=== PATIENT | male | born 1955 | race Caucasian/White ===

== ENCOUNTER 2018-09-27 09:57 | Observation (INO) | payer OTHER ==
[2018-09-27 10:09] VITALS: BMI 27.4
--- NOTE | 2018-09-27 10:45 | C.PDOC ---
History Of Present Illness 63 year old male present to ED with complaint of intermittent left sided chest pain that radiates down the left arm for the past 3-4 days. Patient has a PMHx of CAD s/p 2 stents. Patient admits to drinking a 6-pack of beer today. He is currently requesting detox. He denies SOB, palpitations, cough, and fever. Time Seen by Provider: 09/27/18 10:02 Chief Complaint (Nursing): Chest Pain History Per: Patient History/Exam Limitations: no limitations Onset/Duration Of Symptoms: Days (3-4) Current Symptoms Are (Timing): Still Present Quality: "Pain" Associated Symptoms: denies: Nausea, Dyspnea Past Medical History Reviewed: Historical Data, Nursing Documentation, Vital Signs Vital Signs: Last Vital Signs Temp 98.3 F 09/27/18 10:05 Pulse 63 09/27/18 10:05 Resp 18 09/27/18 10:05 BP 92/56 L 09/27/18 10:05 Pulse Ox 95 09/27/18 10:05 Primary Care Provider: FAMILY PROVIDER,NO - Medical History PMH: Asthma, CHF (Last ECHO 05/07/12: EF 15-20%), HTN Denies: Chronic Kidney Disease Surgical History: Coronary Stent (as per patient) - [employer] Procedures CORONAR ARTERIOGR-2 CATH (02/25/14) FLUOROSCOPY OF LEFT HEART USING LOW OSMOLAR CONTRAST (03/25/15) FLUOROSCOPY OF MULT COR ART USING L OSM CONTRAST (03/25/15) LEFT HEART CARDIAC CATH (02/25/14) LT HEART ANGIOCARDIOGRAM (02/23/14) MEASURE OF CARDIAC SAMPL & PRESSURE, L HEART, PERC APPROACH (03/25/15) Family History: States: Unknown Family Hx - Social History Hx Alcohol Use: Yes Hx Substance Use: No Review Of Systems Constitutional: Negative for: Fever, Chills Cardiovascular: Positive for: Chest Pain (left-sided). Negative for: Palpitations Respiratory: Negative for: Cough, Shortness of Breath Gastrointestinal: Negative for: Nausea, Vomiting Musculoskeletal: Positive for: Arm Pain (left arm pain) Neurological: Negative for: Weakness, Numbness Physical Exam - Physical Exam Appears: Non-toxic, No Acute Distress, Other (appears intoxicated) Skin: Normal Color, Warm, Dry Head: Atraumatic, Normacephalic Eye(s): bilateral: Normal Inspection, PERRL, EOMI Neck: Normal ROM, Supple Chest: Symmetrical, No Deformity Cardiovascular: Rhythm Regular, No Murmur Respiratory: No Accessory Muscle Use, No Rales, No Rhonchi, No Wheezing Gastrointestinal/Abdominal: Bowel Sounds (normoactive), Soft, No Tenderness Extremity: Capillary Refill (<2 seconds) Extremity: Bilateral: Atraumatic, Normal Color And Temperature, Normal ROM Pulses: Left Radial: Normal, Right Radial: Normal Neurological/Psych: Oriented x3, Other (able to follow commands) ED Course And Treatment - Laboratory Results Result Diagrams: 09/27/18 10:54 09/27/18 10:54 ECG: Interpreted By Me, Viewed By Me ECG Rhythm: Sinus Rhythm Interpretation Of ECG: Left axis deviation. T- wave inversion at v2,v3, avF(seen in 03/28/15), and v4-v6 (new). Rate From EC O2 Sat by Pulse Oximetry: 95 (in RA) Pulse Ox Interpretation: Normal - Other Rad CXR X-Ray: Interpreted by Me, Viewed By Me Interpretation: IMPRESSION: No acute findings identified. Progress Note: Labs ordered with cardiac enzymes and drug screen. CXR ordered for patient. Patient given Aspirin PO. Disposition - Disposition Disposition: HOSPITALIZED - Scribe Statement The provider has reviewed the documentation as recorded by the Scribe (Susan Rios) All medical record entries made by the Scribe were at my direction and personally dictated by me. I have reviewed the chart and agree that the record accurately reflects my personal performance of the history, physical exam, medical decision making, and the department course for this patient. I have also personally directed, reviewed, and agree with the discharge instructions and disposition.
[2018-09-27 10:59] LABS: BASO % 0.2 % (0.0-2.0); EOS # 0.1 K/uL (0.0-0.7); EOS % 1.1 % (0.0-4.0); HEMOGLOBIN 11.3 g/dL (12.0-18.0); LYMPH # 1.1 K/uL (1.0-4.3); LYMPH % 13.1 % (20.0-40.0); MEAN CELL VOLUME 94.3 fL (80.0-94.0); MEAN CORPUSCULAR HEMOGLOBIN 32.2 pg (27.0-31.0); MEAN CORPUSCULAR HGB CONC 34.2 g/dL (33.0-37.0); MEAN PLATELET VOLUME 7.6 fL (7.2-11.7); MONO # 0.7 K/uL (0.0-0.8); MONO % 8.7 % (0.0-10.0); NEUT # 6.2 K/uL (1.8-7.0); NEUT % 76.9 % (50.0-75.0); RBC 3.51 Mil/uL (4.40-5.90); RED CELL DISTRIBUTION WIDTH 13.5 % (11.5-14.5); WHITE BLOOD COUNT 8.1 K/uL (4.8-10.8)
[2018-09-27 11:06] LABS: PARTIAL THROMBOPLASTIN TIME 29.8 SECONDS (21-34); PROTHROMBIN TIME 10.5 SECONDS (9.7-12.2)
[2018-09-27 11:15] LABS: ALB/GLOB RATIO 1.3 (1.0-2.1); ALBUMIN 4.6 g/dL (3.5-5.0); ALT/SGPT 68 U/L (21-72); AST/SGOT 186 U/L (17-59); BLOOD UREA NITROGEN 21 mg/dL (9-20); CALCIUM 9.2 mg/dl (8.6-10.4); GFR NON-AFRICAN AMERICAN > 60
[2018-09-27 11:24] LABS: B-TYPE NATRIURETIC PEPTIDE 69.9 pg/mL (0-900); CK-MB 33.8 ng/mL (0.0-3.38)
[2018-09-27] MEDS ORDERED: Sodium Chloride 0.9% 500 ML IV ONE (11:26)
[2018-09-27 11:49] LABS: BARBITURATES, UR NEGATIVE (NEGATIVE); OPIATES, UR NEGATIVE (NEGATIVE); PHENCYCLIDINE, UR NEGATIVE (NEGATIVE)
[2018-09-27 12:06] LABS: BENZODIAZEPINES, UR POSITIVE (NEGATIVE)
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
--- NOTE | 2018-09-27 13:43 | RAD ---
HISTORY: SOB COMPARISON: Chest x-ray performed 04/28/12 TECHNIQUE: Chest, one view. FINDINGS: LUNGS: No focal consolidation. Please note that chest x-ray has limited sensitivity for the detection of pulmonary masses. PLEURA: No significant pleural effusion identified. No definite pneumothorax . CARDIOVASCULAR: The cardiomediastinal silhouette appears within normal limits of size. Atherosclerotic calcifications of the aorta present. OSSEOUS STRUCTURES: Degenerative changes. VISUALIZED UPPER ABDOMEN: Unremarkable. OTHER FINDINGS: None. IMPRESSION: No acute findings identified.
[2018-09-27 14:24] VITALS: RESP 20
[2018-09-27] MEDS ORDERED: Albuterol-Ipratrop 3 mg / 0.5 (3 ml) UD INH PRN (15:47)
[2018-09-27] MEDS ORDERED: Multivitamin (MVI) 10 ML, Thiamine 100 MG, Folic Acid 1 MG in Sodium Chloride 0.9% 1,00... IV ONE (16:30)
[2018-09-27] MEDS: Sodium Chloride 0.9% 1,000 ML IV SCH (17:00)
[2018-09-27 17:42] LABS: CK-MB 28.5 ng/mL (0.0-3.38)
[2018-09-27] MEDS: Fluticasone Nasal 50 mcg/Spray NAS SCH (18:20)
[2018-09-27 20:05] LABS: URINE BACTERIA RARE (<OCC); URINE BILIRUBIN NEGATIVE (NEGATIVE); URINE BLOOD NEGATIVE (NEGATIVE); URINE CLARITY Clear (Clear); URINE COLOR Yellow (YELLOW); URINE GLUCOSE (UA) NORMAL (Normal); URINE LEUKOCYTE ESTERASE NEG Leu/uL (Negative); URINE PROTEIN NEGATIVE (NEGATIVE); URINE UROBILINOGEN NORMAL mg/dL (0.2-1.0)
[2018-09-28] MEDS: Sodium Chloride 0.9% 1,000 ML IV SCH ×3 (03:25→22:15)
[2018-09-28] MEDS: Fluticasone Nasal 50 mcg/Spray NAS SCH ×2 (05:20→17:44)
[2018-09-28 07:31] LABS: BASO % 0.3 % (0.0-2.0); EOS # 0.1 K/uL (0.0-0.7); EOS % 2.2 % (0.0-4.0); HEMOGLOBIN 10.9 g/dL (12.0-18.0); LYMPH # 0.9 K/uL (1.0-4.3); LYMPH % 15.5 % (20.0-40.0); MEAN CELL VOLUME 94.8 fL (80.0-94.0); MEAN CORPUSCULAR HEMOGLOBIN 32.6 pg (27.0-31.0); MEAN CORPUSCULAR HGB CONC 34.4 g/dL (33.0-37.0); MEAN PLATELET VOLUME 8.2 fL (7.2-11.7); MONO # 0.5 K/uL (0.0-0.8); NEUT # 4.4 K/uL (1.8-7.0); NRBC % 0.1 % (0.0-2.0); RBC 3.34 Mil/uL (4.40-5.90); RED CELL DISTRIBUTION WIDTH 13.5 % (11.5-14.5)
[2018-09-28 07:44] LABS: ALB/GLOB RATIO 1.5 (1.0-2.1); ALBUMIN 3.7 g/dL (3.5-5.0); ALT/SGPT 52 U/L (21-72); AST/SGOT 103 U/L (17-59); BLOOD UREA NITROGEN 22 mg/dL (9-20); CALCIUM 8.5 mg/dl (8.6-10.4); GFR NON-AFRICAN AMERICAN > 60
[2018-09-28 07:51] LABS: LDL CHOLESTEROL 34 mg/dL (0-129)
--- NOTE | 2018-09-28 07:51 | CP.PCM.PN ---
<Casa Schneider - Last Filed: 09/28/18 16:27> Subjective - Date & Time of Evaluation Date of Evaluation: 09/28/18 Time of Evaluation: 09:00 - Subjective Subjective: Medicine Progress Note for Dr. Pritchard, Hospitalist Service Pt seen and examined at bedside this am. Reports dry cough without any sputum that has not improved. States he only gets chest pain when he is coughing. Admits to being unable to sleep overnight 2/2 to being diaphoretic. No acute events reported overnight by staff. Observed ambulating around room without concerns. Tolerating PO diet. Voiding well without concerns. Otherwise denies fever, sob, n/v/d/c, abd pain, urinary complaints, or other symptoms. Objective - Vital Signs/Intake and Output Vital Signs (last 24 hours): Temp Pulse Resp BP Pulse Ox 98.8 F 64 20 155/80 H 97 09/28/18 07:20 09/28/18 07:20 09/28/18 07:20 09/28/18 07:20 09/28/18 07:20 - Medications Medications: Current Medications Albuterol/Ipratropium (Duoneb 3 Mg/0.5 Mg (3 Ml) Ud) 3 ml INH RQ6 PRN PRN Reason: Shortness of Breath Aspirin (Aspirin Chewable) 81 mg PO DAILY [facility] Chlordiazepoxide (Librium) 25 mg PO Q4H PRN PRN Reason: Alcohol Withdrawal Last Admin: 09/27/18 17:49 Dose: 25 mg Clopidogrel Bisulfate (Plavix) 75 mg PO DAILY [facility] Fluticasone Propionate (Flonase) 0 spr NANCY Q12H [facility] Last Admin: 09/28/18 05:20 Dose: Not Given Folic Acid (Folic Acid) 1 mg PO DAILY [facility] Furosemide (Lasix) 40 mg PO DAILY [facility] Heparin Sodium (Porcine) (Heparin) 5,000 units SC Q12 [facility] Last Admin: 09/27/18 21:32 Dose: 5,000 units Sodium Chloride (Sodium Chloride 0.9%) 1,000 mls @ 100 mls/hr IV .Q10H [facility] Last Admin: 09/28/18 03:25 Dose: 100 mls/hr Isosorbide Mononitrate (Imdur Er) 60 mg PO DAILY [facility] Lisinopril (Zestril) 10 mg PO DAILY [facility] Loratadine (Claritin) 10 mg PO DAILY [facility] Last Admin: 09/27/18 17:48 Dose: 10 mg Metoprolol Tartrate (Lopressor) 25 mg PO Q12H [facility] Last Admin: 09/27/18 21:33 Dose: 25 mg Multivitamins (Hexavitamin) 1 tab PO DAILY [facility] Nicotine (Nicoderm Cq) 1 patch TD DAILY [facility] Rosuvastatin Calcium (Crestor) 20 mg PO HS [facility] Last Admin: 09/27/18 21:32 Dose: 20 mg Spironolactone (Aldactone) 25 mg PO DAILY [facility] Thiamine HCl (Vitamin B1 Tab) 100 mg PO DAILY [facility] - Labs Labs: 09/28/18 07:23 09/28/18 07:23 PT 10.5 SECONDS (9.7-12.2) 09/27/18 10:54 INR 1.0 09/27/18 10:54 APTT 29.8 SECONDS (21-34) 09/27/18 10:54 - Constitutional Appears: Non-toxic, No Acute Distress - Head Exam Head Exam: ATRAUMATIC, NORMOCEPHALIC - Eye Exam Eye Exam: EOMI, Normal appearance, PERRL - ENT Exam ENT Exam: Mucous Membranes Moist, Normal Oropharynx - Respiratory Exam Respiratory Exam: Clear to Ausculation Bilateral, NORMAL BREATHING PATTERN. absent: Rales, Rhonchi, Wheezes - Cardiovascular Exam Cardiovascular Exam: REGULAR RHYTHM, +S1, +S2. absent: Gallop, Rubs, Murmur - GI/Abdominal Exam GI & Abdominal Exam: Soft, Normal Bowel Sounds. absent: Distended, Guarding, Tenderness, Organomegaly - Extremities Exam Extremities Exam: Full ROM, Normal Capillary Refill, Normal Inspection. absent: Pedal Edema, Tenderness - Back Exam Back Exam: Full ROM, NORMAL INSPECTION. absent: paraspinal tenderness - Neurological Exam Neurological Exam: Alert, Awake, CN II-XII Intact, Normal Gait, Oriented x3 - Skin Skin Exam: Dry, Intact, Normal Color, Warm Assessment and Plan - Assessment and Plan (Free Text) Assessment: 63 year old male with PMHx of CAD with stents x2, HTN, EtOH abuse, and asthma presented to the ED for multiple complaints: dizziness, diaphoresis, rhinorrhea, sneezing, cough with white sputum and chest pain. Admitted for chest pain r/o ACS. Plan: Atypical chest pain -EKG on admission: NSR@ 62 bpm, L axis deviation, inverted T waves in inferior and lateral leads, no significant change from previous -ROMIs neg x3 -Cardiology, Dr. Askew consulted, recs appreciated -Echo demonstrates normal EF, no abnormalities Complaint of diaphoresis, body aches, rhinorrhea, cough -Likely secondary to seasonal allergies vs. viral illness -CXR demonstrates no acute disease -Rapid flu neg -Loratadine 10mg PO daily -Flonase daily -Robitussin prn Acute alcohol intoxication -Librium 25mg PO Q4H PRN -MVT -Folic acid 1mg PO daily -Thiamine 100mg po daily -CIWA protocol -Seizure precautions -Utox pos for benzos Anemia -Likely secondary to alcohol abuse -H/H 10.9/31.6 -Cont to monitor Transaminitis -Likely secondary to alcohol abuse -Trending down this am, cont to monitor -f/u HIV -Hepatitis panel reactive for Hep C -Instructed pt to f/u with PCP to initiate treatment for Hep C Hx CAD with stents, hypertension -TSH wnl, free T4 low, lipid panel wnl -Aspirin 81mg PO daily -Plavix 75mg daily - f/u with Dr. Askew to see if patient need to continue Plavix as stent was placed in 2014 -Lisinopril 10mg PO daily -Metoprolol tartrate 25mg PO Q12h -Isosorbide dinitrate 60mg PO daily -Spironolactone 25mg daily -Furosemide 40mg PO daily -Crestor 20mg HS History of CHF (as per chart records) -Echo 2013: EF 27.9% -Echo 2014: EF 50% with normal LVSF -Echo results 09/28/18 as noted above Hx of asthma -Duonebs Q6H PRN Hx of Nicotine use disorder -Nicotine patch 7mg TD daily PPX: Heparin Q12H, SCD No GI ppx indicated Pt seen, examined with, and plan discussed with Dr. Pritchard, attending physician. Casa Schneider DO PGY-1, Crusher Operator Pager #[phone] <Delisa Pritchard V - Last Filed: 09/29/18 07:28> Objective - Vital Signs/Intake and Output Vital Signs (last 24 hours): Temp Pulse Resp BP Pulse Ox 98.7 F 64 20 131/74 96 09/28/18 23:32 09/28/18 23:40 09/28/18 23:32 09/28/18 23:32 09/28/18 23:32 Intake and Output: 09/29/18 09/29/18 06:59 18:59 Intake Total 1150 Balance 1150 - Medications Medications: Current Medications Albuterol/Ipratropium (Duoneb 3 Mg/0.5 Mg (3 Ml) Ud) 3 ml INH RQ6 PRN PRN Reason: Shortness of Breath Aspirin (Aspirin Chewable) 81 mg PO DAILY [facility] Last Admin: 09/28/18 09:07 Dose: 81 mg Chlordiazepoxide (Librium) 25 mg PO Q4H PRN PRN Reason: Alcohol Withdrawal Last Admin: 09/27/18 17:49 Dose: 25 mg Clopidogrel Bisulfate (Plavix) 75 mg PO DAILY [facility] Last Admin: 09/28/18 09:07 Dose: 75 mg Fluticasone Propionate (Flonase) 0 spr NANCY Q12H [facility] Last Admin: 09/29/18 05:00 Dose: Not Given Folic Acid (Folic Acid) 1 mg PO DAILY [facility] Last Admin: 09/28/18 09:07 Dose: 1 mg Furosemide (Lasix) 40 mg PO DAILY [facility] Last Admin: 09/28/18 09:10 Dose: 40 mg Guaifenesin (Robitussin) 100 mg PO Q4H PRN PRN Reason: Cough Last Admin: 09/29/18 03:43 Dose: 100 mg Heparin Sodium (Porcine) (Heparin) 5,000 units SC Q12 [facility] Last Admin: 09/28/18 22:10 Dose: 5,000 units Sodium Chloride (Sodium Chloride 0.9%) 1,000 mls @ 100 mls/hr IV .Q10H [facility] Last Admin: 09/29/18 03:50 Dose: 100 mls/hr Isosorbide Mononitrate (Imdur Er) 60 mg PO DAILY [facility] Last Admin: 09/28/18 09:07 Dose: 60 mg Lisinopril (Zestril) 10 mg PO DAILY [facility] Last Admin: 09/28/18 13:25 Dose: 10 mg Loratadine (Claritin) 10 mg PO DAILY [facility] Last Admin: 09/28/18 09:06 Dose: 10 mg Metoprolol Tartrate (Lopressor) 25 mg PO Q12H [facility] Last Admin: 09/28/18 19:56 Dose: 25 mg Multivitamins (Hexavitamin) 1 tab PO DAILY [facility] Last Admin: 09/28/18 09:07 Dose: 1 tab Nicotine (Nicoderm Cq) 1 patch TD DAILY [facility] Last Admin: 09/28/18 10:44 Dose: Not Given Rosuvastatin Calcium (Crestor) 20 mg PO HS [facility] Last Admin: 09/28/18 22:10 Dose: 20 mg Spironolactone (Aldactone) 25 mg PO DAILY [facility] Last Admin: 09/28/18 13:25 Dose: 25 mg Thiamine HCl (Vitamin B1 Tab) 100 mg PO DAILY [facility] Last Admin: 09/28/18 09:07 Dose: 100 mg - Labs Labs: 09/29/18 06:35 09/28/18 07:23 PT 10.5 SECONDS (9.7-12.2) 09/27/18 10:54 INR 1.0 09/27/18 10:54 APTT 29.8 SECONDS (21-34) 09/27/18 10:54 Attending/Attestation - Attestation I have personally seen and examined this patient.: Yes I have fully participated in the care of the patient.: Yes I have reviewed all pertinent clinical information, including history, physical exam and plan: Yes Notes (Text): This is a late computer entry for September 28, 2018. This is a 63-year-old male with past medical history including coronary artery disease with 2 stents, hypertension, alcohol abuse and asthma who presented to the ED for multiple complaints including dizziness diaphoresis rhinorrhea and sneezing pleuritic chest pain and associated cough. Patient seen in the morning notably sweats body aches sneezing. He was born in [place] but has lived in [place] for multiple years. He has not had any acute change in terms of his living situation he notes he does not get allergies around this time a year he reports he brings his clothing to the laundromat today cleaned he was advised if he is feeling irritated or allergic component might be the soap with that his laundry denies using advised to clean both his close as well as his sheets at home. Patient reports he does drink an occasional beer here and there. He does also note that he was feeling better while lifting weights but really want to discuss more beyond the bare bones of it. I did indicate to him that if his muscle aches are getting better with IV fluids he should continue that. 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 We did review EKG noting for a left anterior fascicular block troponins are negative x3 with a mildly significant CK of about 2000 3000. Patient does not appear in acute withdrawal no apparent tremors no tachycardia likely he is dehydrated and was exacerbated by his alcohol use. Per review of labs LFTs are appropriately downtrending Mancini 2-1 fashion to indicate likely alcoholic hepatitis. We will follow-up with cardiology today given patient's chest pain complaints in light of his history of CAD and stent placement.
[2018-09-28] MEDS ORDERED: Magnesium Sulfate 1 gm in D5W 1 GM/100 ML BAG IVPB ONE (07:56)
[2018-09-28 08:01] LABS: HDL CHOLESTEROL 132 mg/dL (30-70)
[2018-09-28 08:10] LABS: HEPATITIS B SURFACE AG Negative (NEGATIVE)
[2018-09-28 08:16] LABS: HEPATITIS A IGM NEGATIVE (NEGATIVE); HEPATITIS B CORE AB NEGATIVE (NEGATIVE)
[2018-09-28] MEDS: Multiple Vitamins Tab PO SCH (09:07)
[2018-09-28 09:49] LABS: HEPATITIS C ANTIBODY REACTIVE (NEGATIVE)
[2018-09-28] MEDS: guaiFENesin 100 mg/5 ml Syrup UD PO PRN (10:42)
--- NOTE | 2018-09-28 13:37 | CP.PCM.CON ---
History of Present Illness - History of Present Illness History of Present Illness: refer to a dictated consult Past Patient History - Infectious Disease Hx of Infectious Diseases: None - Tetanus Immunizations Tetanus Immunization: Unknown - Past Medical History & Family History Past Medical History?: Yes - Past Social History Smoking Status: Heavy Smoker > 10 Cigarettes Daily - CARDIAC Hx Congestive Heart Failure: Yes (Last ECHO 05/07/12: EF 15-20%) Hx Hypertension: Yes - PULMONARY Hx Asthma: Yes - RENAL Hx Chronic Kidney Disease: No - ENDOCRINE/METABOLIC Hx Endocrine Disorders: No - MUSCULOSKELETAL/RHEUMATOLOGICAL Hx Falls: No - GASTROINTESTINAL Hx Gastrointestinal Disorders: Yes Other/Comment: Esophageal strictures - PSYCHIATRIC Hx Substance Use: No - SURGICAL HISTORY Hx Coronary Stent: Yes (as per patient) - ANESTHESIA Hx Anesthesia: Yes Hx Anesthesia Reactions: No Meds Allergies/Adverse Reactions: Allergies Allergy/AdvReac Type Severity Reaction Status Date / Time No Known Allergies Allergy Verified 09/27/18 10:08 - Medications Medications: Current Medications Albuterol/Ipratropium (Duoneb 3 Mg/0.5 Mg (3 Ml) Ud) 3 ml INH RQ6 PRN PRN Reason: Shortness of Breath Aspirin (Aspirin Chewable) 81 mg PO DAILY [facility] Last Admin: 09/28/18 09:07 Dose: 81 mg Chlordiazepoxide (Librium) 25 mg PO Q4H PRN PRN Reason: Alcohol Withdrawal Last Admin: 09/27/18 17:49 Dose: 25 mg Clopidogrel Bisulfate (Plavix) 75 mg PO DAILY [facility] Last Admin: 09/28/18 09:07 Dose: 75 mg Fluticasone Propionate (Flonase) 0 spr NANCY Q12H [facility] Last Admin: 09/28/18 05:20 Dose: Not Given Folic Acid (Folic Acid) 1 mg PO DAILY [facility] Last Admin: 09/28/18 09:07 Dose: 1 mg Furosemide (Lasix) 40 mg PO DAILY [facility] Last Admin: 09/28/18 09:10 Dose: 40 mg Guaifenesin (Robitussin) 100 mg PO Q4H PRN PRN Reason: Cough Last Admin: 09/28/18 10:42 Dose: 100 mg Heparin Sodium (Porcine) (Heparin) 5,000 units SC Q12 [facility] Last Admin: 09/28/18 09:11 Dose: 5,000 units Sodium Chloride (Sodium Chloride 0.9%) 1,000 mls @ 100 mls/hr IV .Q10H [facility] Last Admin: 09/28/18 13:26 Dose: Not Given Isosorbide Mononitrate (Imdur Er) 60 mg PO DAILY [facility] Last Admin: 09/28/18 09:07 Dose: 60 mg Lisinopril (Zestril) 10 mg PO DAILY [facility] Last Admin: 09/28/18 13:25 Dose: 10 mg Loratadine (Claritin) 10 mg PO DAILY [facility] Last Admin: 09/28/18 09:06 Dose: 10 mg Metoprolol Tartrate (Lopressor) 25 mg PO Q12H [facility] Last Admin: 09/28/18 07:58 Dose: 25 mg Multivitamins (Hexavitamin) 1 tab PO DAILY [facility] Last Admin: 09/28/18 09:07 Dose: 1 tab Nicotine (Nicoderm Cq) 1 patch TD DAILY [facility] Last Admin: 09/28/18 10:44 Dose: Not Given Rosuvastatin Calcium (Crestor) 20 mg PO HS [facility] Last Admin: 09/27/18 21:32 Dose: 20 mg Spironolactone (Aldactone) 25 mg PO DAILY [facility] Last Admin: 09/28/18 13:25 Dose: 25 mg Thiamine HCl (Vitamin B1 Tab) 100 mg PO DAILY [facility] Last Admin: 09/28/18 09:07 Dose: 100 mg Results - Vital Signs Recent Vital Signs: Last Vital Signs Temp 98.8 F 09/28/18 07:20 Pulse 64 09/28/18 07:20 Resp 20 09/28/18 07:20 BP 119/67 09/28/18 13:25 Pulse Ox 97 09/28/18 07:20 - Labs Result Diagrams: 09/28/18 07:23 09/28/18 07:23 Labs: Laboratory Results - last 24 hr 09/27/18 09/27/18 09/27/18 10:54 17:05 17:07 WBC RBC Hgb Hct MCV MCH MCHC RDW Plt Count MPV Neut % (Auto) Lymph % (Auto) Noble % (Auto) Eos % (Auto) Baso % (Auto) Neut # (Auto) Lymph # (Auto) Noble # (Auto) Eos # (Auto) Baso # (Auto) Sodium Potassium Chloride Carbon Dioxide Anion Gap BUN Creatinine Est GFR ( Amer) Est GFR (Non-Af Amer) POC Glucose (mg/dL) Random Glucose Calcium Phosphorus Magnesium Total Bilirubin AST ALT Alkaline Phosphatase Total Creatine Kinase 3051 H CK-MB (Mass) 28.5 H Troponin I < 0.0120 Total Protein Albumin Globulin Albumin/Globulin Ratio Triglycerides Cholesterol LDL Cholesterol Direct HDL Cholesterol Free T4 0.71 L TSH 3rd Generation 0.82 Urine Color Urine Clarity Urine pH Ur Specific [place] Urine Protein Urine Glucose (UA) Urine Ketones Urine Blood Urine Nitrate Urine Bilirubin Urine Urobilinogen Ur Leukocyte Esterase Urine WBC (Auto) Urine RBC (Auto) Urine Bacteria Hepatitis A IgM Ab Hep Bs Antigen Hep B Core IgM Ab Hepatitis C Antibody Influenza Typ A,B (EIA) 09/27/18 09/27/18 09/27/18 19:50 19:50 21:13 WBC RBC Hgb Hct MCV MCH MCHC RDW Plt Count MPV Neut % (Auto) Lymph % (Auto) Noble % (Auto) Eos % (Auto) Baso % (Auto) Neut # (Auto) Lymph # (Auto) Noble # (Auto) Eos # (Auto) Baso # (Auto) Sodium Potassium Chloride Carbon Dioxide Anion Gap BUN Creatinine Est GFR ( Amer) Est GFR (Non-Af Amer) POC Glucose (mg/dL) 92 Random Glucose Calcium Phosphorus Magnesium Total Bilirubin AST ALT Alkaline Phosphatase Total Creatine Kinase CK-MB (Mass) Troponin I Total Protein Albumin Globulin Albumin/Globulin Ratio Triglycerides Cholesterol LDL Cholesterol Direct HDL Cholesterol Free T4 TSH 3rd Generation Urine Color Yellow Urine Clarity Clear Urine pH 5.0 Ur Specific [place] 1.009 Urine Protein Negative Urine Glucose (UA) Normal Urine Ketones Negative Urine Blood Negative Urine Nitrate Negative Urine Bilirubin Negative Urine Urobilinogen Normal Ur Leukocyte Esterase Neg Urine WBC (Auto) < 1 Urine RBC (Auto) < 1 Urine Bacteria Rare Hepatitis A IgM Ab Hep Bs Antigen Hep B Core IgM Ab Hepatitis C Antibody Influenza Typ A,B (EIA) Negative for flu a/b 09/27/18 09/28/18 09/28/18 22:45 07:23 07:23 WBC 6.0 RBC 3.34 L Hgb 10.9 L Hct 31.6 L MCV 94.8 H MCH 32.6 H MCHC 34.4 RDW 13.5 Plt Count 218 MPV 8.2 Neut % (Auto) 73.0 Lymph % (Auto) 15.5 L Noble % (Auto) 9.0 Eos % (Auto) 2.2 Baso % (Auto) 0.3 Neut # (Auto) 4.4 Lymph # (Auto) 0.9 L Noble # (Auto) 0.5 Eos # (Auto) 0.1 Baso # (Auto) 0.0 Sodium 137 Potassium 4.1 Chloride 103 Carbon Dioxide 24 Anion Gap 13 BUN 22 H Creatinine 0.9 Est GFR ( Amer) > 60 Est GFR (Non-Af Amer) > 60 POC Glucose (mg/dL) Random Glucose 89 Calcium 8.5 L Phosphorus 3.5 Magnesium 1.6 Total Bilirubin 0.6 AST 103 H D ALT 52 Alkaline Phosphatase 92 Total Creatine Kinase 2530 H CK-MB (Mass) 20.0 H Troponin I < 0.0120 Total Protein 6.1 L Albumin 3.7 Globulin 2.4 Albumin/Globulin Ratio 1.5 Triglycerides 59 Cholesterol 157 LDL Cholesterol Direct 34 HDL Cholesterol 132 H Free T4 TSH 3rd Generation Urine Color Urine Clarity Urine pH Ur Specific [place] Urine Protein Urine Glucose (UA) Urine Ketones Urine Blood Urine Nitrate Urine Bilirubin Urine Urobilinogen Ur Leukocyte Esterase Urine WBC (Auto) Urine RBC (Auto) Urine Bacteria Hepatitis A IgM Ab Hep Bs Antigen Hep B Core IgM Ab Hepatitis C Antibody Influenza Typ A,B (EIA) 09/28/18 07:23 WBC RBC Hgb Hct MCV MCH MCHC RDW Plt Count MPV Neut % (Auto) Lymph % (Auto) Noble % (Auto) Eos % (Auto) Baso % (Auto) Neut # (Auto) Lymph # (Auto) Noble # (Auto) Eos # (Auto) Baso # (Auto) Sodium Potassium Chloride Carbon Dioxide Anion Gap BUN Creatinine Est GFR ( Amer) Est GFR (Non-Af Amer) POC Glucose (mg/dL) Random Glucose Calcium Phosphorus Magnesium Total Bilirubin AST ALT Alkaline Phosphatase Total Creatine Kinase CK-MB (Mass) Troponin I Total Protein Albumin Globulin Albumin/Globulin Ratio Triglycerides Cholesterol LDL Cholesterol Direct HDL Cholesterol Free T4 TSH 3rd Generation Urine Color Urine Clarity Urine pH Ur Specific [place] Urine Protein Urine Glucose (UA) Urine Ketones Urine Blood Urine Nitrate Urine Bilirubin Urine Urobilinogen Ur Leukocyte Esterase Urine WBC (Auto) Urine RBC (Auto) Urine Bacteria Hepatitis A IgM Ab Negative Hep Bs Antigen Negative Hep B Core IgM Ab Negative Hepatitis C Antibody Reactive Influenza Typ A,B (EIA)
--- NOTE | 2018-09-28 14:31 | CARD ---
APPROVED REPORT Date of service: 09/28/2018 EXAM: Two-dimensional and M-mode echocardiogram with Doppler and color Doppler. Other Information Quality : GoodRhythm : INDICATION Chest Pain Congestive Heart Failure 2D DIMENSIONS IVSd0.9 (0.7-1.1cm)LVDd3.9 (3.9-5.9cm) PWd1.0 (0.7-1.1cm)LA Zpmare49 (18-58mL) LVDs2.7 (2.5-4.0cm)FS (%) 32.8 % LVEF (%)61.8 (>50%)LVEF (Rowley's)63.51 % M-Mode DIMENSIONS Left Atrium (MM)3.55 (2.5-4.0cm)IVSd0.86 (0.7-1.1cm) Aortic Root3.11 (2.2-3.7cm)LVDd5.14 (4.0-5.6cm) Aortic Cusp Exc.2.15 (1.5-2.0cm)PWd0.92 (0.7-1.1cm) FS (%) 38 %LVDs3.17 (2.0-3.8cm) LVEF (%)68 (>50%) Mitral Valve MV E Pzywlrsz10.5cm/sMV A Veelfyky63.7cm/sE/A ratio0.9 TDI Lateral E' Peak V12.90cm/sMedial E' Peak V6.93cm/sE/Lateral E'5.8 E/Medial E'10.8 Tricuspid Valve TR Peak Qssupuiy233ll/sTR Peak Gr.[id number] <Conclusion> normal size la,lv & RA rv. nomral lv wall motion,thickness,systolic & diastolic funciton with l vef of 60-65%. normal aortic,mitral,tv & pv. mild mr,tr & pi with normal pulmonary systoloic pressures of 31 mm of hg. normal size aortic root & ivc. no pericaridal effusion.
--- NOTE | 2018-09-28 15:26 | CARD ---
APPROVED REPORT Date of service: 09/27/2018 EKG Measurement Heart [id number] <Conclusion> Normal sinus rhythm Left anterior fascicular block T wave abnormality, consider inferolateral ischemia Abnormal ECG
[2018-09-29] MEDS: guaiFENesin 100 mg/5 ml Syrup UD PO PRN (03:43)
[2018-09-29] MEDS: Sodium Chloride 0.9% 1,000 ML IV SCH ×2 (03:50→08:55)
[2018-09-29] MEDS: Fluticasone Nasal 50 mcg/Spray NAS SCH (05:00)
--- NOTE | 2018-09-29 05:03 | CON ---
DATE: 09/28/2018 REASON FOR CONSULTATION: Chest pain. HISTORY OF PRESENT ILLNESS: The patient is a 63-year-old male, who has a history of coronary artery disease with a history of coronary artery stenting to the right coronary artery in 2014 at the [facility]. The patient also has a history of EtOH abuse. He presented because of chest discomfort and was found to be alcohol intoxicated. The alcohol level was 281. At this time, the patient denies any chest pain. SOCIAL HISTORY: The patient is an EtOH abuser. MEDICATIONS: Aldactone 25 mg once a day, aspirin 81 mg once a day, Crestor 20 mg once a day, albuterol inhaler every 6 hours, folic acid 1 mg once a day, Imdur 60 mg once a day, Lasix 40 mg p.o. once a day, Librium 20 mg p.o. every 4 hours p.r.n. patch, Lopressor 25 mg twice a day, Plavix 75 mg once a day, Zestril 10 mg once a day, and thiamine 100 mg once a day. REVIEW OF SYSTEMS: No fever or chills. No dizziness or syncope. PHYSICAL EXAMINATION: GENERAL: The patient is a middle-aged male, who does not appear to be in acute distress. VITAL SIGNS: Blood pressure 119/67, heart rate 75, temperature 98.8, and respirations 20. HEENT: Normocephalic. NECK: No JVD. CHEST: Clear. CARDIOPULMONARY: S1 and S2, regular. ABDOMEN: Soft. EXTREMITIES: No edema. LABORATORY DATA: EKG revealed normal sinus rhythm at rate of 70, left ventricular fascicular block and nonspecific T-wave abnormality. Echocardiographic study performed yesterday revealed normal left atrial and left ventricular size with normal wall thickness and wall motion. Grade 1 abnormal relaxation pattern. Today's SMA-7 within normal limits except BUN of 22. Total of three troponins are negative. TSH level is within normal limits. Today's hemoglobin and hematocrit are 10.9 and 31.6. White count and platelet count are within normal limits. Urine drug screen is positive for benzodiazepines. ASSESSMENT: 1. Chest pain, myocardial infarction is ruled out. 2. Alcohol intoxication. RECOMMENDATIONS: Continue Aldactone at 25 mg daily, aspirin 81 mg once a day, Crestor 20 mg once a day, Imdur 60 mg once a day, Lopressor 25 mg daily, thiamine 100 mg once a day, and Zestril 10 mg once a day. Watch for any alcohol withdrawal symptoms. Conservative medical approach unless the patient develops more typical kind of chest pain or ischemic EKG changes. In either scenario, whether the patient develops any recurrent chest pain or not, a treadmill stress test is indicated once the patient has recovered from his alcohol intoxication and any alcohol withdrawal symptoms following that. Cuco Askew MD
[2018-09-29 06:48] LABS: BASO % 0.3 % (0.0-2.0); EOS # 0.2 K/uL (0.0-0.7); EOS % 3.3 % (0.0-4.0); HEMOGLOBIN 11.2 g/dL (12.0-18.0); LYMPH # 1.2 K/uL (1.0-4.3); LYMPH % 18.2 % (20.0-40.0); MEAN CELL VOLUME 96.2 fL (80.0-94.0); MEAN CORPUSCULAR HGB CONC 33.2 g/dL (33.0-37.0); MEAN PLATELET VOLUME 8.2 fL (7.2-11.7); MONO # 0.7 K/uL (0.0-0.8); MONO % 10.1 % (0.0-10.0); NEUT # 4.7 K/uL (1.8-7.0); NEUT % 68.1 % (50.0-75.0); RBC 3.52 Mil/uL (4.40-5.90); RED CELL DISTRIBUTION WIDTH 13.5 % (11.5-14.5); WHITE BLOOD COUNT 6.8 K/uL (4.8-10.8)
[2018-09-29 07:33] LABS: ALB/GLOB RATIO 1.3 (1.0-2.1); ALBUMIN 3.6 g/dL (3.5-5.0); ALT/SGPT 53 U/L (21-72); AST/SGOT 90 U/L (17-59); BLOOD UREA NITROGEN 17 mg/dL (9-20); CALCIUM 9.1 mg/dl (8.6-10.4); GFR NON-AFRICAN AMERICAN > 60
[2018-09-29 08:26] VITALS: BP 150/80; PULSE 67; TEMP 98.4; O2SAT 99
--- NOTE | 2018-09-29 09:36 | CP.PCM.DIS ---
<Casa Schneider - Last Filed: 09/29/18 14:14> Provider - Provider Date of Admission: 09/27/18 12:38 Attending physician: Delisa Pritchard DO Primary care physician: Dr. Ash Kirkland Consults: 09/27/18 14:22 Cardiology Consult Routine Comment: [place] [address] Askew Consulting Provider: Cuco Askew Consulting Physician: Cuco Askew Reason for Consult: Chest pain CAD with stent x2 Time Spent in preparation of Discharge (in minutes): 30 Diagnosis - Discharge Diagnosis (1) Atypical chest pain Status: Resolved (2) Coronary artery disease Status: Chronic (3) Status post arterial stent Status: Chronic (4) AA (alcohol abuse) Status: Chronic (5) Asthma Status: Chronic (6) Hypertension Status: Chronic (7) Allergic symptoms Status: Acute (8) Alcohol intoxication Status: Resolved (9) Anemia Status: Acute (10) Transaminitis Status: Acute (11) Hepatitis C Status: Acute (12) Tobacco abuse Status: Chronic Hospital Course - Lab Results Lab Results: Most Recent Lab Values WBC 6.8 K/uL (4.8-10.8) 09/29/18 06:35 RBC 3.52 Mil/uL (4.40-5.90) L 09/29/18 06:35 Hgb 11.2 g/dL (12.0-18.0) L 09/29/18 06:35 Hct 33.8 % (35.0-51.0) L 09/29/18 06:35 MCV 96.2 fL (80.0-94.0) H 09/29/18 06:35 MCH 32.0 pg (27.0-31.0) H 09/29/18 06:35 MCHC 33.2 g/dL (33.0-37.0) 09/29/18 06:35 RDW 13.5 % (11.5-14.5) 09/29/18 06:35 Plt Count 208 K/uL (130-400) 09/29/18 06:35 MPV 8.2 fL (7.2-11.7) 09/29/18 06:35 Neut % (Auto) 68.1 % (50.0-75.0) 09/29/18 06:35 Lymph % (Auto) 18.2 % (20.0-40.0) L 09/29/18 06:35 [place] % (Auto) 10.1 % (0.0-10.0) H 09/29/18 06:35 Eos % (Auto) 3.3 % (0.0-4.0) 09/29/18 06:35 Baso % (Auto) 0.3 % (0.0-2.0) 09/29/18 06:35 Neut # (Auto) 4.7 K/uL (1.8-7.0) 09/29/18 06:35 Lymph # (Auto) 1.2 K/uL (1.0-4.3) 09/29/18 06:35 [place] # (Auto) 0.7 K/uL (0.0-0.8) 09/29/18 06:35 Eos # (Auto) 0.2 K/uL (0.0-0.7) 09/29/18 06:35 Baso # (Auto) 0.0 K/uL (0.0-0.2) 09/29/18 06:35 PT 10.5 SECONDS (9.7-12.2) 09/27/18 10:54 INR 1.0 09/27/18 10:54 APTT 29.8 SECONDS (21-34) 09/27/18 10:54 Sodium 136 mmol/L (132-148) 09/29/18 06:35 Potassium 4.0 mmol/L (3.6-5.2) 09/29/18 06:35 Chloride 104 mmol/L (98-107) 09/29/18 06:35 Carbon Dioxide 27 mmol/L (22-30) 09/29/18 06:35 Anion Gap 9 (10-20) L 09/29/18 06:35 BUN 17 mg/dL (9-20) 09/29/18 06:35 Creatinine 1.0 mg/dL (0.8-1.5) 09/29/18 06:35 Est GFR ( Amer) > 60 09/29/18 06:35 Est GFR (Non-Af Amer) > 60 09/29/18 06:35 POC Glucose (mg/dL) 92 mg/dL (65-110) 09/27/18 21:13 Random Glucose 103 mg/dL (75-110) 09/29/18 06:35 Calcium 9.1 mg/dl (8.6-10.4) 09/29/18 06:35 Phosphorus 3.1 mg/dL (2.5-4.5) 09/29/18 06:35 Magnesium 1.8 mg/dL (1.6-2.3) 09/29/18 06:35 Total Bilirubin 0.6 mg/dL (0.2-1.3) 09/29/18 06:35 AST 90 U/L (17-59) H 09/29/18 06:35 ALT 53 U/L (21-72) 09/29/18 06:35 Alkaline Phosphatase 85 U/L (38-126) 09/29/18 06:35 Total Creatine Kinase 2530 U/L (55-170) H 09/27/18 22:45 CK-MB (Mass) 20.0 ng/mL (0.0-3.38) H 09/27/18 22:45 Troponin I < 0.0120 ng/mL (0.00-0.120) 09/27/18 22:45 NT-Pro-B Natriuret Pep 69.9 pg/mL (0-900) 09/27/18 10:54 Total Protein 6.5 g/dL (6.3-8.3) 09/29/18 06:35 Albumin 3.6 g/dL (3.5-5.0) 09/29/18 06:35 Globulin 2.9 gm/dL (2.2-3.9) 09/29/18 06:35 Albumin/Globulin Ratio 1.3 (1.0-2.1) 09/29/18 06:35 Triglycerides 59 mg/dL (0-149) 09/28/18 07:23 Cholesterol 157 mg/dL (0-199) 09/28/18 07:23 LDL Cholesterol Direct 34 mg/dL (0-129) 09/28/18 07:23 HDL Cholesterol 132 mg/dL (30-70) H 09/28/18 07:23 Free T4 0.71 ng/dL (0.78-2.19) L 09/27/18 17:07 TSH 3rd Generation 0.82 mIU/L (0.46-4.68) 09/27/18 10:54 Urine Color Yellow (YELLOW) 09/27/18 19:50 Urine Clarity Clear (Clear) 09/27/18 19:50 Urine pH 5.0 (5.0-8.0) 09/27/18 19:50 Ur Specific [place] 1.009 (1.003-1.030) 09/27/18 19:50 Urine Protein Negative mg/dL (NEGATIVE) 09/27/18 19:50 Urine Glucose (UA) Normal mg/dL (Normal) 09/27/18 19:50 Urine Ketones Negative mg/dL (NEGATIVE) 09/27/18 19:50 Urine Blood Negative (NEGATIVE) 09/27/18 19:50 Urine Nitrate Negative (NEGATIVE) 09/27/18 19:50 Urine Bilirubin Negative (NEGATIVE) 09/27/18 19:50 Urine Urobilinogen Normal mg/dL (0.2-1.0) 09/27/18 19:50 Ur Leukocyte Esterase Neg Na/uL (Negative) 09/27/18 19:50 Urine WBC (Auto) < 1 /hpf (0-5) 09/27/18 19:50 Urine RBC (Auto) < 1 /hpf (0-3) 09/27/18 19:50 Urine Bacteria Rare (<OCC) 09/27/18 19:50 Urine Opiates Screen Negative (NEGATIVE) 09/27/18 11:20 Urine Methadone Screen Negative (NEGATIVE) 09/27/18 11:20 Ur Barbiturates Screen Negative (NEGATIVE) 09/27/18 11:20 Ur Phencyclidine Scrn Negative (NEGATIVE) 09/27/18 11:20 Ur Amphetamines Screen Negative (NEGATIVE) 09/27/18 11:20 U Benzodiazepines Scrn Positive (NEGATIVE) 09/27/18 11:20 U Oth Cocaine Metabols Negative (NEGATIVE) 09/27/18 11:20 U Cannabinoids Screen Negative (NEGATIVE) 09/27/18 11:20 Alcohol, Quantitative 281 mg/dl (0-10) H 09/27/18 10:54 Hepatitis A IgM Ab Negative (NEGATIVE) 09/28/18 07:23 Hep Bs Antigen Negative (NEGATIVE) 09/28/18 07:23 Hep B Core IgM Ab Negative (NEGATIVE) 09/28/18 07:23 Hepatitis C Antibody Reactive (NEGATIVE) 09/28/18 07:23 Influenza Typ A,B (EIA) Negative for flu a/b (NEGATIVE) 09/27/18 19:50 Ur L.pneumophila Ag Negative (NEGATIVE) 09/28/18 13:53 Mycoplasma pneumon IgM Negative (NEGATIVE) 09/28/18 13:53 - Hospital Course Hospital Course: HPI at time of admission: "63 year old male with PMHx of CAD with stents x2, HTN, EtOH abuse, and asthma presents for multiple complaints: dizziness, body aches, diaphoresis, rhinorrhea, sneezing, cough with white sputum and chest pain. Symptoms began 3-4 days ago. Chest pain is midsternal and intermittent. It does not radiate. Patient cannot describe the pain. It comes on whether at rest or ambulating. Patient states he has been exercising with 20 lb weights to bilateral upper arms for the last few days and states that initially that made him feel better, but now has not been helping. States drinking alcohol improves his symptoms. His last drink was last night. Denies fever, chills, nausea, vomiting, shortness of breath, focal weakness or numbness, sick contacts, recent travel. Please note, patient is poor historian." Hospital Course: Pertinent imaging: -CXR: no acute disease -Echo: normal EF, no abnormalities -EKG on admission: NSR@ 62 bpm, L axis deviation, inverted T waves in inferior and lateral leads, no significant change from previous. Repeat EKG demonstrated no acute findings. Pt was admitted for chest pain r/o ACS. ROMIs neg x3. Cardiology was consulted (Dr. Askew), who recommended conservative management. Pt's chest pain was also more pleuritic in origin and worsened with pt's dry cough. CXR was negative. Rapid flu, Mycoplasma, and Legionella were negative. Pt demonstrated no leukocytosis. Pt's symptoms of dizziness, body aches, diaphoresis, rhinorrhea, sneezing, and cough were likely 2/2 to seasonal allergies vs. viral illness, and pt was treated with supportive care during admission. Pt was also treated for ETOH intoxication and withdrawal symptoms. EtOH level was elevated on admission, Utox positive for benzodiazepines. On day of d/c, pt demonstrated no signs/sxs of withdrawal from alcohol. Pt was counseled on EtOH cessation. Pt also had transaminitis on admission, likely 2/2 EtOH abuse. Hepatitis panel demonstrated that pt was positive for Hep C. Pt was counseled on importance of initiating treatment for Hep C after d/c with his PCP. Pt was d/c to home in stable condition on 09/29/18. Was instructed to f/u with PMD Dr. Aleman within 2-3 days of hospital d/c and with Cardiology (Dr. Askew) within 1 week of discharge for outpatient stress testing. This is a summary of the hospital course. For further details, please refer to the hospital EMR. Discharge Exam - Head Exam Head Exam: ATRAUMATIC, NORMOCEPHALIC - Eye Exam Eye Exam: EOMI, Normal appearance, PERRL - ENT Exam ENT Exam: Mucous Membranes Moist, Normal Oropharynx - Respiratory Exam Respiratory Exam: Clear to PA & Lateral, NORMAL BREATHING PATTERN, UNREMARKABLE - Cardiovascular Exam Cardiovascular Exam: REGULAR RHYTHM, +S1, +S2 - GI/Abdominal Exam GI & Abdominal Exam: Normal Bowel Sounds, Soft, Unremarkable. absent: Tenderness - Extremities Exam Extremities exam: full ROM, normal capillary refill, normal inspection, pedal pulses present - Neurological Exam Neurological exam: Alert, CN II-XII Intact, Normal Gait, Oriented x3, Reflexes N ormal - Skin Skin Exam: Dry, Intact, Normal Color, Warm Discharge Plan - Discharge Medications Prescriptions: RX: Ascorbic Acid [Vitamin C 500 mg Tab] 500 mg PO DAILY #5 tab Benzonatate [Tessalon Perle] 100 mg PO Q4H PRN #20 capsule PRN Reason: Sore Throat RX: Loratadine [Claritin] 10 mg PO DAILY #30 tab RX: Multivitamins [Hexavitamin] 1 tab PO DAILY #30 tab RX: Thiamine [Vitamin B1 Tab] 100 mg PO DAILY #30 tab - Follow Up Plan Condition: GOOD Disposition: HOME/ ROUTINE Instructions: Seasonal Allergies in Adults, Heart Healthy Diet, Chest Pain, Heart Failure, Adult (DC), Alcohol Withdrawal (DC), Alcohol Abuse and Alcoholism (DC) Additional Instructions: Please follow-up with your primary care physician (Dr. Aleman - [facility]) within 1 week of hospital discharge. Please follow-up with Cardiology (Dr. Askew) within 1 week of discharge for possible outpatient stress testing. Please resume home medications as prescribed. You have been prescribed new medications to help with your allergy symptoms and sore throat. Please take as prescribed. Should your symptoms worsen, please call your primary care physician or report to your nearest emergency department. Referrals: Cuco Askew MD [Staff Provider] - <Dleisa Pritchard V - Last Filed: 09/29/18 15:59> Provider - Provider Date of Admission: 09/27/18 12:38 Attending physician: Delisa Pritchard, Consults: 09/27/18 14:22 Cardiology Consult Routine Comment: [place] [address] Askew Consulting Provider: Cuco Askew Consulting Physician: Cuco Askew Reason for Consult: Chest pain CAD with stent x2 Hospital Course - Lab Results Lab Results: Most Recent Lab Values WBC 6.8 K/uL (4.8-10.8) 09/29/18 06:35 RBC 3.52 Mil/uL (4.40-5.90) L 09/29/18 06:35 Hgb 11.2 g/dL (12.0-18.0) L 09/29/18 06:35 Hct 33.8 % (35.0-51.0) L 09/29/18 06:35 MCV 96.2 fL (80.0-94.0) H 09/29/18 06:35 MCH 32.0 pg (27.0-31.0) H 09/29/18 06:35 MCHC 33.2 g/dL (33.0-37.0) 09/29/18 06:35 RDW 13.5 % (11.5-14.5) 09/29/18 06:35 Plt Count 208 K/uL (130-400) 09/29/18 06:35 MPV 8.2 fL (7.2-11.7) 09/29/18 06:35 Neut % (Auto) 68.1 % (50.0-75.0) 09/29/18 06:35 Lymph % (Auto) 18.2 % (20.0-40.0) L 09/29/18 06:35 [place] % (Auto) 10.1 % (0.0-10.0) H 09/29/18 06:35 Eos % (Auto) 3.3 % (0.0-4.0) 09/29/18 06:35 Baso % (Auto) 0.3 % (0.0-2.0) 09/29/18 06:35 Neut # (Auto) 4.7 K/uL (1.8-7.0) 09/29/18 06:35 Lymph # (Auto) 1.2 K/uL (1.0-4.3) 09/29/18 06:35 [place] # (Auto) 0.7 K/uL (0.0-0.8) 09/29/18 06:35 Eos # (Auto) 0.2 K/uL (0.0-0.7) 09/29/18 06:35 Baso # (Auto) 0.0 K/uL (0.0-0.2) 09/29/18 06:35 PT 10.5 SECONDS (9.7-12.2) 09/27/18 10:54 INR 1.0 09/27/18 10:54 APTT 29.8 SECONDS (21-34) 09/27/18 10:54 Sodium 136 mmol/L (132-148) 09/29/18 06:35 Potassium 4.0 mmol/L (3.6-5.2) 09/29/18 06:35 Chloride 104 mmol/L (98-107) 09/29/18 06:35 Carbon Dioxide 27 mmol/L (22-30) 09/29/18 06:35 Anion Gap 9 (10-20) L 09/29/18 06:35 BUN 17 mg/dL (9-20) 09/29/18 06:35 Creatinine 1.0 mg/dL (0.8-1.5) 09/29/18 06:35 Est GFR ( Amer) > 60 09/29/18 06:35 Est GFR (Non-Af Amer) > 60 09/29/18 06:35 POC Glucose (mg/dL) 92 mg/dL (65-110) 09/27/18 21:13 Random Glucose 103 mg/dL (75-110) 09/29/18 06:35 Calcium 9.1 mg/dl (8.6-10.4) 09/29/18 06:35 Phosphorus 3.1 mg/dL (2.5-4.5) 09/29/18 06:35 Magnesium 1.8 mg/dL (1.6-2.3) 09/29/18 06:35 Total Bilirubin 0.6 mg/dL (0.2-1.3) 09/29/18 06:35 AST 90 U/L (17-59) H 09/29/18 06:35 ALT 53 U/L (21-72) 09/29/18 06:35 Alkaline Phosphatase 85 U/L (38-126) 09/29/18 06:35 Total Creatine Kinase 2530 U/L (55-170) H 09/27/18 22:45 CK-MB (Mass) 20.0 ng/mL (0.0-3.38) H 09/27/18 22:45 Troponin I < 0.0120 ng/mL (0.00-0.120) 09/27/18 22:45 NT-Pro-B Natriuret Pep 69.9 pg/mL (0-900) 09/27/18 10:54 Total Protein 6.5 g/dL (6.3-8.3) 09/29/18 06:35 Albumin 3.6 g/dL (3.5-5.0) 09/29/18 06:35 Globulin 2.9 gm/dL (2.2-3.9) 09/29/18 06:35 Albumin/Globulin Ratio 1.3 (1.0-2.1) 09/29/18 06:35 Triglycerides 59 mg/dL (0-149) 09/28/18 07:23 Cholesterol 157 mg/dL (0-199) 09/28/18 07:23 LDL Cholesterol Direct 34 mg/dL (0-129) 09/28/18 07:23 HDL Cholesterol 132 mg/dL (30-70) H 09/28/18 07:23 Free T4 0.71 ng/dL (0.78-2.19) L 09/27/18 17:07 TSH 3rd Generation 0.82 mIU/L (0.46-4.68) 09/27/18 10:54 Urine Color Yellow (YELLOW) 09/27/18 19:50 Urine Clarity Clear (Clear) 09/27/18 19:50 Urine pH 5.0 (5.0-8.0) 09/27/18 19:50 Ur Specific [place] 1.009 (1.003-1.030) 09/27/18 19:50 Urine Protein Negative mg/dL (NEGATIVE) 09/27/18 19:50 Urine Glucose (UA) Normal mg/dL (Normal) 09/27/18 19:50 Urine Ketones Negative mg/dL (NEGATIVE) 09/27/18 19:50 Urine Blood Negative (NEGATIVE) 09/27/18 19:50 Urine Nitrate Negative (NEGATIVE) 09/27/18 19:50 Urine Bilirubin Negative (NEGATIVE) 09/27/18 19:50 Urine Urobilinogen Normal mg/dL (0.2-1.0) 09/27/18 19:50 Ur Leukocyte Esterase Neg Na/uL (Negative) 09/27/18 19:50 Urine WBC (Auto) < 1 /hpf (0-5) 09/27/18 19:50 Urine RBC (Auto) < 1 /hpf (0-3) 09/27/18 19:50 Urine Bacteria Rare (<OCC) 09/27/18 19:50 Urine Opiates Screen Negative (NEGATIVE) 09/27/18 11:20 Urine Methadone Screen Negative (NEGATIVE) 09/27/18 11:20 Ur Barbiturates Screen Negative (NEGATIVE) 09/27/18 11:20 Ur Phencyclidine Scrn Negative (NEGATIVE) 09/27/18 11:20 Ur Amphetamines Screen Negative (NEGATIVE) 09/27/18 11:20 U Benzodiazepines Scrn Positive (NEGATIVE) 09/27/18 11:20 U Oth Cocaine Metabols Negative (NEGATIVE) 09/27/18 11:20 U Cannabinoids Screen Negative (NEGATIVE) 09/27/18 11:20 Alcohol, Quantitative 281 mg/dl (0-10) H 09/27/18 10:54 Hepatitis A IgM Ab Negative (NEGATIVE) 09/28/18 07:23 Hep Bs Antigen Negative (NEGATIVE) 09/28/18 07:23 Hep B Core IgM Ab Negative (NEGATIVE) 09/28/18 07:23 Hepatitis C Antibody Reactive (NEGATIVE) 09/28/18 07:23 Influenza Typ A,B (EIA) Negative for flu a/b (NEGATIVE) 09/27/18 19:50 Ur L.pneumophila Ag Negative (NEGATIVE) 09/28/18 13:53 Mycoplasma pneumon IgM Negative (NEGATIVE) 09/28/18 13:53 Attending/Attestation - Attestation I have personally seen and examined this patient.: Yes I have fully participated in the care of the patient.: Yes I have reviewed all pertinent clinical information, including history, physical exam and plan: Yes Notes (Text): Patient seen, examined case discussed with emergency medical technician. This is a 63 year old male with PMHx of CAD with stents x2, HTN, EtOH abuse, and asthma presented to the ED for multiple complaints: dizziness, diaphoresis, rhinorrhea, sneezing, cough with white sputum and chest pain. Patient was observed on telemetry. Patient noted on admission for elevated alcohol. Patient was placed on Librium as needed with multivitamin folic acid and thiamine and monitor using CIWA protocol. Noted on telemetry heart rate remained stable. On day of discharge patient denies any chest pain no shortness of breath. Patient does not have much for tremor on exam. Patient does admit that he drinks pretty much every day reports that he can maintain sobriety on his own. We did encourage him in addition to maintaining the wheel of alcohol cessation he would also be supported by the use of Alcoholics Anonymous and to in terms of reinforcement of his alcohol cessation. He also did explain to him that the alcohol is likely to worsen his dehydration as well. Patient denies muscle aches today patient did not begin IV fluids since admission. Patient troponins are negative x3 does not have persistent chest pain however he is aware that if he does have chest pain to come back to the emergency room to be evaluated. Patient does have a pending appointment with his PMD on the for refills of all his medications he reports that he usually gets a 3-month supply from his PMD. Chest x-ray is negative for any acute disease serology does not support atypical causes such as Legionella or mycoplasma IgM. Likely this is viral. Patient is where he can take 5 to 7 days to rest drinks to try to use vitamin C urinating boost to help the immune system. He did indicate him to take Claritin to reduce allergy risk since the season she has changed. We did remind him to get his yearly flu vaccinations. H&H remains stable. LFTs are improving. Patient noted during hospitalization for hepatitis C antibody positive however he is never been told he has hepatitis C he is a strongly advised to follow-up with his PMD for further testing and possible referral to infectious disease. He is aware that with untreated hepatitis C can lead to things like cirrhosis and liver cancer. He is also aware that it is transferable by fluids and sexual contact as well as any contact with small amounts of blood which are which is more virulent than being HIV. He also did indicate if he does have a hepatitis C that there is available treatment depending on the type virus. Patient with a known history of CAD and hypertension advised to continue taking his medications as prescribed Patient with a known history of asthma but is not in acute exacerbation. Patient is medically stable for discharge. Patient advised to follow-up with PMD for refills and further testing for hepatitis C. Patient advised in terms of using protection during sexual intercourse and is aware that hepatitis C is transferable with good exchange of blood and body fluids. He is also further obligated to stop his alcohol use and with the support of AA to continue cessation. Letter This is a summary patient hospitalization please refer to EMR for full details thank you.
[2018-09-29] MEDS: Multiple Vitamins Tab PO SCH (09:52)
--- NOTE | 2018-09-29 15:51 | PCM.HF ---
Heart Failure Core Measure - Heart Failure Ejection Fraction: 40 % or Greater Left Ventricular Function to be assessed after discharge: Yes ALINA Inhibitor Prescribed: Yes Contraindication/Reason for not providing: lopressor Angiotensin II Receptor Yana Prescribed: No Contraindication/Reason for not providing: on alina inhibitor AnticoagulationTherapy for Atrial Fibrillation/Atrialflutter: No Contraindication/Reason for not providing: not clinically indicated Aldosterone Antagonist Prescribed: No Contraindication/Reason for not providing: not clinically indicated Hydralazine Nitrate Prescribed: No Contraindication/Reason for not providing: not clinically indicated Implantable Cardioverter Defibrillator Therapy: No Contraindication/Reason for not providing: not clinically indicated Cardiac Resynchronization Therapy Prescribed: No Contraindication/Reason for not providing: not clinically indicated - Follow up Will be discharged to: Home Follow Up Date (must be within 7 days from discharge): 10/06/18
--- NOTE | 2018-09-29 21:10 | CARD ---
APPROVED REPORT Date of service: 09/27/2018 EKG Measurement Heart [id number] <Conclusion> Normal sinus rhythm Left anterior fascicular block Nonspecific T wave abnormality Abnormal ECG
== END 2018-09-29 14:00 | disposition home or self-care (01) ==
LOC: C.ER 09:57 → C.9E 12:38 → C.6T 13:12
PROVIDERS: ADMIT Hospitalist; ATTEND Hospitalist
DX: F10.230 Alcohol dependence with withdrawal, uncomplicated (principal); E86.0 Dehydration; F10.220 Alcohol dependence with intoxication, uncomplicated; Y90.8 Blood alcohol level of 240 mg/100 ml or more; F17.210 Nicotine dependence, cigarettes, uncomplicated; I25.10 Atherosclerotic heart disease of native coronary artery without angina pectoris; J45.909 Unspecified asthma, uncomplicated; Z95.5 Presence of coronary angioplasty implant and graft; B19.20 Unspecified viral hepatitis C without hepatic coma; D64.9 Anemia, unspecified; I11.0 Hypertensive heart disease with heart failure; I50.9 Heart failure, unspecified
CPT/HCPCS: 36415; 71045; 80053; 80061; 80074; 80320; 80324; 80345; 80346; 80349; 80353; 80358; 80361; 81001; 82550; 82553; 82948; 83735; 83880; 83992; 84100; 84439; 84443; 84484; 85025; 85610; 85730; 86738; 87449; 87804; 93005; 93306; 99285; G0378; J1644; J3411; J3475; J7030; J7040

== ENCOUNTER 2018-09-30 21:13 | Observation (INO) | payer OTHER ==
[2018-09-30 21:13] VITALS: BMI 27.4
--- NOTE | 2018-09-30 22:06 | C.PDOC ---
History Of Present Illness 63 year old male presents to the ED c/o neck pain. Upon examination patient reports pain is chronic due to his severe kyphosis. Patient requesting detox for alcohol abuse. Patient denies SI/HI, hallucinations, other drug abuse. Time Seen by Provider: 09/30/18 21:51 Chief Complaint (Nursing): Medical Clearance History Per: Patient History/Exam Limitations: intoxication Onset/Duration Of Symptoms: Hrs Current Symptoms Are (Timing): Still Present Recent travel outside of the [place]: No Additional History Per: Patient Past Medical History Reviewed: Historical Data, Nursing Documentation, Vital Signs Vital Signs: Last Vital Signs Temp 97.5 F L 09/30/18 21:20 Pulse 76 09/30/18 21:20 Resp 20 09/30/18 21:20 BP 90/58 L 09/30/18 21:20 Pulse Ox 98 09/30/18 21:20 Primary Care Provider: Non [facility] Provider, - Medical History PMH: Asthma, CHF (Last ECHO 05/07/12: EF 15-20%), HTN Denies: Chronic Kidney Disease Other PMH: kyphosis Surgical History: Coronary Stent (as per patient) - [facility] Procedures CORONAR ARTERIOGR-2 CATH (02/25/14) FLUOROSCOPY OF LEFT HEART USING LOW OSMOLAR CONTRAST (03/25/15) FLUOROSCOPY OF MULT COR ART USING L OSM CONTRAST (03/25/15) LEFT HEART CARDIAC CATH (02/25/14) LT HEART ANGIOCARDIOGRAM (02/23/14) MEASURE OF CARDIAC SAMPL & PRESSURE, L HEART, PERC APPROACH (03/25/15) Family History: States: Unknown Family Hx - Social History Hx Alcohol Use: Yes Hx Substance Use: No - Immunization History Hx Tetanus Toxoid Vaccination: No Hx Influenza Vaccination: No Hx Pneumococcal Vaccination: No Review Of Systems Constitutional: Negative for: Fever, Chills, Weakness ENT: Negative for: Mouth Swelling Cardiovascular: Negative for: Chest Pain Respiratory: Negative for: Shortness of Breath Gastrointestinal: Negative for: Vomiting, Diarrhea Skin: Negative for: Rash Neurological: Negative for: Weakness, Numbness, Headache, Dizziness Physical Exam - Physical Exam Appears: Non-toxic, No Acute Distress Skin: Normal Color, Warm, Dry Head: Atraumatic, Normacephalic Eye(s): bilateral: Normal Inspection, PERRL, EOMI Neck: Normal ROM, Supple Chest: Symmetrical Cardiovascular: Rhythm Regular Respiratory: No Accessory Muscle Use, Other (normal inspiratory effort) Gastrointestinal/Abdominal: Soft, No Tenderness, No Distention Back: Other (ambulating with upright steady gait) Extremity: Bilateral: Atraumatic, Normal ROM (x4) Neurological/Psych: Oriented x3, Other (slurred speech) ED Course And Treatment - Laboratory Results Result Diagrams: 10/01/18 00:22 10/01/18 00:22 O2 Sat by Pulse Oximetry: 98 (ON RA) Pulse Ox Interpretation: Normal Medical Decision Making Medical Decision Making: Plan: * Labs * UA * Crisis Disposition - Disposition Disposition: HOSPITALIZED Disposition Time: 01:33 Condition: STABLE - Clinical Impression Clinical Impression: Alcohol use disorder - PA / PUBLIC ADMINISTRATION TEACHER / Resident Statement MD/DO has reviewed & agrees with the documentation as recorded. - Scribe Statement The provider has reviewed the documentation as recorded by the Scribe Tico Canseco All medical record entries made by the Scribe were at my direction and person ally dictated by me. I have reviewed the chart and agree that the record accurately reflects my personal performance of the history, physical exam, medical decision making, and the department course for this patient. I have also personally directed, reviewed, and agree with the discharge instructions and disposition. Decision To Admit - Pt Status Changed To: Hospital Disposition Of: Observation - . Bed Request Type: Detox Admitting Physician: Elinor Hayes Patient Diagnosis: Alcohol use disorder
[2018-10-01 00:33] LABS: URINE BILIRUBIN NEGATIVE (NEGATIVE); URINE BLOOD NEGATIVE (NEGATIVE); URINE CLARITY Clear (Clear); URINE COLOR Straw (YELLOW); URINE GLUCOSE (UA) NORMAL (Normal); URINE LEUKOCYTE ESTERASE NEG Leu/uL (Negative); URINE PROTEIN NEGATIVE (NEGATIVE); URINE UROBILINOGEN NORMAL mg/dL (0.2-1.0)
[2018-10-01 00:38] LABS: BASO % 0.4 % (0.0-2.0); EOS # 0.3 K/uL (0.0-0.7); EOS % 4.1 % (0.0-4.0); HEMOGLOBIN 10.4 g/dL (12.0-18.0); LYMPH # 1.8 K/uL (1.0-4.3); LYMPH % 27.3 % (20.0-40.0); MEAN CELL VOLUME 95.4 fL (80.0-94.0); MEAN CORPUSCULAR HEMOGLOBIN 33.1 pg (27.0-31.0); MEAN CORPUSCULAR HGB CONC 34.7 g/dL (33.0-37.0); MEAN PLATELET VOLUME 8.1 fL (7.2-11.7); MONO # 0.8 K/uL (0.0-0.8); MONO % 11.9 % (0.0-10.0); NEUT # 3.7 K/uL (1.8-7.0); NEUT % 56.3 % (50.0-75.0); NRBC % 0.1 % (0.0-2.0); RBC 3.14 Mil/uL (4.40-5.90); RED CELL DISTRIBUTION WIDTH 13.6 % (11.5-14.5); WHITE BLOOD COUNT 6.5 K/uL (4.8-10.8)
[2018-10-01 00:49] LABS: BARBITURATES, UR NEGATIVE (NEGATIVE); OPIATES, UR NEGATIVE (NEGATIVE); PHENCYCLIDINE, UR NEGATIVE (NEGATIVE)
[2018-10-01 00:59] LABS: ALB/GLOB RATIO 1.6 (1.0-2.1); ALBUMIN 4.4 g/dL (3.5-5.0); ALT/SGPT 51 U/L (21-72); AST/SGOT 104 U/L (17-59); BLOOD UREA NITROGEN 21 mg/dL (9-20); CALCIUM 8.7 mg/dl (8.6-10.4); GFR NON-AFRICAN AMERICAN > 60
[2018-10-01 01:15] LABS: BENZODIAZEPINES, UR POSITIVE (NEGATIVE)
--- NOTE | 2018-10-01 03:29 | PCM.BM ---
<Erlin Montgomery - Last Filed: 10/01/18 03:26> Treatment Plan Problems - Problems identified on initial assessmt Altered Health Maintanance Date Initiated: 10/01/18 Time Initiated: 02:00 Assessment reference: NA Status: Active Defensive Coping Date Initiated: 10/01/18 Time Initiated: 02:00 Assessment reference: NA Status: Active Low Motivation To Change Date Initiated: 10/01/18 Time Initiated: 02:00 Assessment reference: NA Status: Active Treatment assets and liabiliti Patient Assests: cooperative, negotiates basic needs, cognitively intact Patient Liabilities: substance abuse, medical problems - Milieu Protocol Maintain good personal hygiene: daily Encourage regular showers, daily Remind patient to perform daily oral care, daily Assist patient to perform ADL's Conduct patient checks and document Observation sheet: Q15 minutes Maintain personal safety: every shift Educate patient to report safety concerns to staff, every shift Monitor environment for contraband/sharps Medication safety: Monitor for expected outcome, potential side effects: every shift, Assess barriers to learning: every shift, Assess readiness for medication education: every shift <Bucky Grady - Last Filed: 10/02/18 10:26> - Diagnosis (1) Alcohol use disorder Status: Acute Interventions: 10/01/18 10:26 * Assess 7x/week regarding severity of withdrawal * Educate regarding risks, benefits, side effects and alternatives of medications * Use Motivational Interviewing for abstinence * Use CBT for relapse prevention * Medication management for withdrawal symptoms * Encourage medication assisted treatment *
[2018-10-01] MEDS ORDERED: SPIRONOLACTONE 25 MG PO SCH (10:00)
[2018-10-01] MEDS: Multiple Vitamins Tab PO SCH (10:17)
--- NOTE | 2018-10-01 13:52 | PCM.PSYCH ---
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 He lives with a friend in [place], [place]. He presents to [facility] to detox from alcohol. UDS was positive for benzodiazepines, although he denies using this substance. He admits to drinking two 6-packs of beer per day for the past 4-5 years. He started drinking at the age of 21 and was primarily drinking liquor (2 bottles of whiskey per day) until 8-9 years ago when he switched to beer. His last drink was at 7 AM on the day of admission, Sep 30 2018. He denies any use of illicit or prescribed substances, besides some marijuana use in his early 20s. Patient is a current light smoker, smoking 1-2 packs per week. This is his third time in a detox program, once at [facility] and once at [facility] [place]. He attended AA meetings around 15 years ago but states that it just didnt work for him. He states that his longest period of sobriety was 2-3 ye ars but is unsure of the exact dates. He states that the best way he knows how to stay sober is to keep working. He denies any history of seizures. He admits to falling 5-6 days ago due to intoxication. He was hospitalized at [facility] from Sep 27 2018 through Sep 30 2018 for chest pain. Work-up for FL was negative but he was found to have Hepatitis C. He admits to recent hallucinations (visual, audio, tactile), tremors, and neck pain. He feels depressed but denies any suicidal ideation. His withdrawal sxs are not severe at this point likely due to his recent short admission to hospital Past Psychiatric History: depression (undiagnosed) Family Psych History: father and mother with alcohol use d/o Past Medical History: Hepatitis C (untreated), CAD (stent x2 8 yrs ago), Asthma, Hypertension Past Surgical History: denies Current Medications: Active Medications Generic Name Dose Route Start Last Admin Trade Name Freq PRN Reason Stop Dose Admin Aspirin 81 mg 10/01/18 10:00 10/01/18 10:16 Aspirin Chewable PO 81 mg DAILY GERARD Administration Chlordiazepoxide 25 mg 10/01/18 08:53 Librium PO Q4H PRN Alcohol Withdrawal Clonidine HCl 0.1 mg 10/01/18 08:53 Catapres PO Q4H PRN Symptoms of alcohol withdrawl Clopidogrel Bisulfate 75 mg 10/01/18 10:00 10/01/18 10:47 Plavix PO 75 mg DAILY GERARD Administration Folic Acid 1 mg 10/01/18 10:00 10/01/18 10:17 Folic Acid PO 1 mg DAILY GERARD Administration Gabapentin 100 mg 10/01/18 10:00 10/01/18 13:18 Neurontin PO 100 mg TID GERARD Administration Hydroxyzine HCl 25 mg 10/01/18 08:50 Atarax PO Q4H PRN Anxiety Ibuprofen 400 mg 10/01/18 08:50 Motrin Tab PO Q6H PRN Pain, moderate (4-7) Lisinopril 10 mg 10/01/18 10:00 10/01/18 10:17 Zestril PO 10 mg DAILY GERARD Administration Loratadine 10 mg 10/01/18 10:00 10/01/18 10:19 Claritin PO 10 mg DAILY GERARD Administration Metoprolol Tartrate 25 mg 10/01/18 10:00 10/01/18 10:16 Lopressor PO 25 mg Q12 GERARD Administration Multivitamins 1 tab 10/01/18 10:00 10/01/18 10:17 Hexavitamin PO 1 tab DAILY GERARD Administration Spironolactone 25 mg 10/01/18 10:00 10/01/18 10:47 Aldactone PO 25 mg BID GERARD Administration Thiamine HCl 100 mg 10/01/18 10:00 10/01/18 10:16 Vitamin B1 Tab PO 100 mg DAILY GERARD Administration Trazodone HCl 50 mg 10/01/18 08:50 Desyrel PO HS PRN Insomnia Past Psychiatric History - Past Psychiatric History Previous Treatment History: None Pertinent Medical Hx (Current Medical&Sleep Prob, Allergies): Allergies Allergy/AdvReac Type Severity Reaction Status Date / Time No Known Allergies Allergy Verified 09/30/18 21:27 Furosemide 40 mg PO DAILY #0 tab 02/26/14 Spironolactone 25 mg PO DAILY #0 tab 02/26/14 Folic Acid 1 mg PO DAILY #0 tab 03/28/15 Lisinopril [Zestril] 10 mg PO DAILY #0 tab 03/28/15 Atorvastatin [Lipitor] 40 mg PO DIN #0 tab 03/29/15 Clopidogrel [Plavix] 75 mg PO DAILY #0 tab 03/29/15 Metoprolol Tartrate [Lopressor] 25 mg PO Q12 #0 tab 03/29/15 Isosorbide Dinitrate [Isosorbide Dinitrate ER] 60 mg PO DAILY 09/27/18 Ascorbic Acid [Vitamin C 500 mg Tab] 500 mg PO DAILY #5 tab 09/29/18 Aspirin [Aspirin Chewable] 81 mg PO DAILY chew 09/29/18 Benzonatate [Tessalon Perle] 100 mg PO Q4H PRN #20 capsule 09/29/18 Loratadine [Claritin] 10 mg PO DAILY #30 tab 09/29/18 Multivitamins [Hexavitamin] 1 tab PO DAILY #30 tab 09/29/18 Thiamine [Vitamin B1 Tab] 100 mg PO DAILY #30 tab 09/29/18 Review of Systems - Psychiatric Psychiatric: Abnormal Sleep Pattern, Anhedonia, Anxiety, Depression, Difficulty Concentrating. absent: Hallucinations, Homicidal Ideation, Paranoia, Suicidal Ideation Mental Status Examination - Personal Presentation Personal Presentation: Looks stated age - Affect Affect: Constricted - Motor Activity Motor Activity: Calm - Reliability in Providing Information Reliability in Providing Information: Good - Speech Speech: Organized - Mood Mood: Depressed, Anxious - Formal Thought Process Formal Thought Process: No Impairment - Cognitive Functions Orientation: Person, Place, Situation, Time Sensorium: Alert Attention/Concentration: Attentive Estimate of Intelligence: Average Judgement: Intact, as evidence by: Insight regarding need for hospitalization Memory: Recent intact, as evidence by: Ability to recall events of the day, Remote intact, as evidenced by: Ability to recall historical events - Risk Risk: Withdrawal, Diminished functioning - Strength & Assets Inventory Strength & Assets Inventory: Cooperative - Limitations Limitations: Other DSM 5 DX - DSM 5 DSM 5 Diagnosis: ALcohol use d/o - severe Depressive d/o - unspecified - Recommended/Plan of Treatment Treatment Recommendations and Plan of Treatment: Taper with librium when he withdraws Lexapro for depression Gabapentin for augmentation if needed As needed medications All risks, benefits and alternatives of the meds discussed, and the pt agreed and understood. Attend groups and activities Supportive therapy and psychoeducation FL for abstinence CBT for relapse prevention Encourage MAT Refer to rehab or IOP, and self-help groups Teach healthy lifestyle methods, i.e. diet, exercise, meditation Smoking cessation with FL Nicotine patch if needed 34 min
--- NOTE | 2018-10-01 15:43 | RAD ---
Date of service: 10/01/2018 HISTORY: COMPARISON: No comparison cervical spine x-rays are noted. A chest x-ray from 04/28/2012 is noted. TECHNIQUE: 2 views obtained. FINDINGS: On the frontal projection image of the cervical thoracic spine the aortic knob is seen projecting right of the distal trachea on the chest x-ray the aortic knob projects in its typical left-sided position. A believed the frontal cervical spine is misslabeled right side given the suggested prior appearance of the aortic knob. No fracture or subluxation seen. Cervical spondylosis diffuse is noted. Minimal anterior spondylosis C5-6 seen. No lytic lesions noted. IMPRESSION: No cervical spine fracture or subluxation perceived. Minimal degenerative changes as above. Other findings as above.
[2018-10-02 06:23] VITALS: PULSE 73
--- NOTE | 2018-10-02 10:05 | PCM.PYCHDC ---
Mental Status Examination - Mental Status Examination Orientation: Person, Place, Situation, Time Memory: Intact Mood: Anxious Affect: Constricted Speech: Appropriate Attention: WNL Concentration: WNL Association: WNL Fund of Knowledge: WNL Formal Thought Process: No Impairment Suicidal Ideation: No Current Homicidal Ideation?: No Discharge Summary - Discharge Note Reason for Hospitalization: Alcohol detox Consultations:: List each consultation separately and include: 1. Reason for request. 2. Findings. 3. Follow-up Summary of Hospital Course include:: 1. Description of specific treatment plan utilized for patients during their course of treatmen. 2. Summarize the time- course for resolution of acute symptoms and/or regressed behaviors. 3. Describe issues identified and worked on during hospitalization. 4. Describe medication utilized. 5. Describe medical problems identified and treated. 6. 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 He lives with a friend in [place], [place]. He presents to [facility] to detox from alcohol. UDS was positive for benzodiazepines, although he denies using this substance. He admits to drinking two 6-packs of beer per day for the past 4-5 years. He started drinking at the age of 21 and was primarily drinking liquor (2 bottles of whiskey per day) until 8-9 years ago when he switched to beer. His last drink was at 7 AM on the day of admission, Sep 30 2018. He denies any use of illicit or prescribed substances, besides some marijuana use in his early 20s. Patient is a current light smoker, smoking 1-2 packs per week. This is his third time in a detox program, once at [facility] and once at [facility]. He attended AA meetings around 15 years ago but states that it just didnt work for him. He states that his longest period of sobriety was 2-3 years but is unsure of the exact dates. He states that the best way he knows how to stay sober is to keep working. He denies any history of seizures. He admits to falling 5-6 days ago due to intoxication. He was hospitalized at [facility] from Sep 27 2018 through Sep 30 2018 for chest pain. Work-up for HI was negative but he was found to have Hepatitis C. He admits to recent hallucinations (visual, audio, tactile), tremors, and neck pain. He feels depressed but denies any suicidal ideation. His withdrawal sxs are not severe at this point likely due to his recent short admission to hospital Past Psychiatric History: depression (undiagnosed) Family Psych History: father and mother with alcohol use d/o Past Medical History: Hepatitis C (untreated), CAD (stent x2 8 yrs ago), Asthma, Hypertension Past Surgical History: denies Hospital course: The pt was admitted and started on treatment with psychotherapy, support, psychoeducation and medications. HI and CBT used. The pt attended groups and activities, as well as milieu therapy. All the risks and benefits of medications are discussed and the patient understood and agreed. The pt improved with the treatments provided. After care discussed with the patient. He had mild wdw symptoms and stayed and discharged on observation status after 48 hours. He refused referrals but AA, saying "I got a lot of things to do " - Final Diagnosis (DSM 5) Condition upon Discharge: STABLE DSM 5: ALcohol use d/o - severe Depressive d/o - unspecified Disposition: HOME/ ROUTINE Follow-up Treatment Plan: Continue below medications after discharge. Follow after care plan as discussed. Use relapse prevention skills Return to ER or call 911 if suicidal, homicidal or symptoms relapse. Stay away from stress, alcohol and drugs. See primary doctor regularly and get labs. Prescriptions/Medication Reconciliation: traZODone [Desyrel] 50 mg PO HS PRN #30 tab PRN Reason: Insomnia
[2018-10-02] MEDS: Multiple Vitamins Tab PO SCH (10:11)
[2018-10-02 10:13] VITALS: BP 116/70
[2018-10-02 11:04] VITALS: RESP 18; TEMP 98.3; O2SAT 99
== END 2018-10-02 10:45 | disposition home or self-care (01) ==
LOC: C.ER 21:13 → INTOOBSV 10-01 01:30 → C.7D 10-01 01:30
PROVIDERS: ADMIT Psychiatry & Neurology Psychiatry; ATTEND Psychiatry & Neurology Psychiatry
DX: F10.10 Alcohol abuse, uncomplicated (principal); F32.9 Major depressive disorder, single episode, unspecified; F17.200 Nicotine dependence, unspecified, uncomplicated; I25.10 Atherosclerotic heart disease of native coronary artery without angina pectoris; Z95.5 Presence of coronary angioplasty implant and graft; I11.0 Hypertensive heart disease with heart failure; I50.9 Heart failure, unspecified; J45.909 Unspecified asthma, uncomplicated; M40.209 Unspecified kyphosis, site unspecified; F17.210 Nicotine dependence, cigarettes, uncomplicated; Z79.82 Long term (current) use of aspirin; Z79.899 Other long term (current) drug therapy
CPT/HCPCS: 36415; 70360; 80053; 80320; 80324; 80345; 80346; 80349; 80353; 80358; 80361; 81001; 83735; 83992; 84100; 85025; 99284; G0378